=== PATIENT | female | born 1990 | race Two or more races ===

== ENCOUNTER 2017-09-19 13:47 | Emergency (ER) | payer SELFPAY ==
[2017-09-19] MEDS: LIDOCAINE WITH 8.4% SOD BICARB 3 ML DISP.SYRIN. INJ ×2 (15:13)
[2017-09-19] MEDS: DIPHTH,PERTUSS(ACELL),TET TOX 0.5 ML DISP.SYRIN. VAX IM ×2 (15:14)
== END 2017-09-19 15:20 | disposition home or self-care (01) ==
LOC: ER 13:47
DX: S61.411A Laceration without foreign body of right hand, initial encounter (principal); E03.9 Hypothyroidism, unspecified; W26.8XXA Contact with other sharp object(s), not elsewhere classified, initial encounter; Y93.89 Activity, other specified; Y92.89 Other specified places as the place of occurrence of the external cause; Y99.8 Other external cause status
CPT/HCPCS: 12001; 90471; 90715; 99283-25